=== PATIENT | female | born 1995 | race Caucasian/White ===

== ENCOUNTER 2016-06-10 21:37 | Observation (INO) ==
[2016-06-10 22:43] LABS: Bilirubin,Urine Negative (Negative); Blood,Urine Negative (Negative); Clarity,Urine Cloudy (Clear); Color,Urine Yellow (Yellow); Glucose,Urine (UA) Normal (Normal); Ketones,Urine 15 mg/dL (Negative); Leukocyte Esterase,Urine Moderate (Negative); Nitrite,Urine Negative (Negative); Protein,Urine Negative (Neg-Trace); Specific Gravity,Urine 1.016 (1.010-1.025); Urobilinogen,Urine Normal (Normal)
[2016-06-10 22:44] LABS: Bacteria,Urine Few per hpf (None-Few); Hyaline Casts,Urine None Seen per lpf (None-Few); Squamous Epithelial Cell,Urine Many per lpf (None-Few); WBC,Urine 15-30 per hpf (0-3)
[2016-06-10 22:58] LABS: Sperm,Urine Present
--- NOTE | 2016-06-11 00:03 | Discharge Summary ---
Date of Encounter: 06/11/16 Time of Encounter: 00:01 - Discharge Diagnosis (1) Non-stress test reactive Priority: Primary Status: Acute Comments: Patient Triaged by RN for labor eval; no cervical change noted per RN Reactive NST [id number] with moderate variability and 15x15 accels; category I. [place] no contractions noted. Patient discharged home with labor precautions and kick counts. - Discharge Medications Home Medications: Vit/Iron Fumarate/FA [ Tablet] 1 each PO DAILY 05/15/15 [ History] Allergies/Adverse Reactions: Allergies No Known Allergies Allergy (Verified 06/10/16 22:17) Data Procedures and tests throughout hospitalization: Laboratory Tests 06/10/16 22:35 Urine Color Yellow Urine Clarity Cloudy A Urine pH 7.0 Ur Specific Neal 1.016 Urine Protein Negative Urine Glucose (UA) Normal Urine Ketones 15 H Urine Blood Negative Urine Nitrite Negative Urine Bilirubin Negative Urine Urobilinogen Normal Ur Leukocyte Esterase Moderate H Urine Microscopic RBC 3-5 H Urine Microscopic WBC 15-30 H Ur Squamous Epith Cells Many H Urine Bacteria Few Hyaline Casts None Seen Urine Sperm Present Ur Culture Indicated? YES A Labs on day of discharge: Labs from last 24 hours 06/10/16 22:35 Urine Color Yellow Urine Clarity Cloudy A Urine pH 7.0 Ur Specific Neal 1.016 Urine Protein Negative Urine Glucose (UA) Normal Urine Ketones 15 H Urine Blood Negative Urine Nitrite Negative Urine Bilirubin Negative Urine Urobilinogen Normal Ur Leukocyte Esterase Moderate H Urine Microscopic RBC 3-5 H Urine Microscopic WBC 15-30 H Ur Squamous Epith Cells Many H Urine Bacteria Few Hyaline Casts None Seen Urine Sperm Present Ur Culture Indicated? YES A Date of admission: 06/10/16 21:37 - Patient Status Disposition: Home, Self-Care - Discharge Instructions Additional Instructions: LABOR AND DELIVERY DISCHARGE INSTRUCTIONS Signs and Symptoms to be Reported to your Doctor Immediately: * Sudden gush, continuous or intermittent lead of fluid from vagina (note the time of gush and color of fluid) * Onset of bright red vaginal bleeding with or without pain (if you had a vaginal exam during this visit you may notice some dark red spotting. This is normal.) * Lower abdominal cramping or backache that is premenstrual-like feeling. * More than 6 contractions in one hour. * Burning during urination, having to urinate more frequently or pain in your mid-back. * A change in the baby's activity. This could be an increase or decrease in activity. * Severe headache which does not go away with tylenol. * Sudden swelling in the face, hands, arms and/or legs. * Upper abdominal pain - sometimes associated with heartburn or nausea and is not relieved by Maalox, Mylanta or Tums. * Dizziness or blurred vision or visual disturbances (seeing stars/lights). * Kick Counts One hour after a meal, lay down on one side in a quiet place. Count the number of tanvi the baby moves during an hour. If less than 6 movements, notify your physician. Diet: *Force fluids - 8-10 tall glasses of fluid per day. May include popsicles and jello. *Limit caffeine - this includes chocolate, coffee, tea, any soft drink containing such as all valentin, Jeremie Yellow and Mountain Dew follow up next schedule appointment Hospital Course [employer] Time Attestation: Total time spent providing and/or coordinating discharge services: - VTE Reasons for not Prescribing Prophylaxis: Treatment not Indicated - Low risk for VTE
== END 2016-06-10 23:38 | disposition home or self-care (01) ==
LOC: 1NENULAB
PROVIDERS: ADMIT Obstetrics & Gynecology; ATTEND Obstetrics & Gynecology

== ENCOUNTER 2016-06-12 17:02 | Observation (INO) ==
--- NOTE | 2016-06-12 17:33 | OB/GYN Progress Note ---
Date of Encounter: 06/12/16 Time of Encounter: 17:31 - Assessment and Plan (1) 36 weeks gestation of Current Visit: Yes Status: Acute (2) Musculoskeletal back pain Current Visit: Yes Status: Acute TTP with light palpation across lower back. No CVAT. SVE unchanged from last exam. Will give flexeril for pain. Pt instructed on comfort measures for home. DIscharge home with precautions. (3) Non-stress test reactive Current Visit: No Status: Acute Subjective - Subjective Principal diagnosis: back pain Interval history: 20 year-old presenting at 36w1d with c/o sudden onset of sharp lower back pain and pelvic pressure at 1415 this afternoon that made her feel like she needed to push. She reports continued sharp lower back pain. She also reports some clear vaginal discharge. Good FM. No VB or cramping pain. Antepartum ROS: loss of fluid, movement normal, no vaginal bleeding, no contractions Objective - Exam FHR: category 1 FHR comments: NST 135 BPM and reactive Abdomen: Present: soft, gravid. Absent: tenderness Uterus: Absent: tenderness Cervical dilation: 1 Cervix effacement: 70 station: -2 Comments: negative CVAT, TTP with light touch across lower back SSE negative pool, negative nitrazine, negative fern, scant amount physiologic appearing mucus in vaginal vault
== END 2016-06-12 18:13 | disposition home or self-care (01) ==
LOC: 1NENULAB
PROVIDERS: ADMIT Obstetrics & Gynecology; ATTEND Obstetrics & Gynecology

== ENCOUNTER 2016-06-18 07:22 | Observation (INO) ==
--- NOTE | 2016-06-18 08:29 | OB/GYN Progress Note ---
Date of Encounter: 06/18/16 Time of Encounter: 08:29 - Assessment and Plan (1) 37 weeks gestation of Current Visit: Yes Status: Acute (2) False labor Current Visit: Yes Status: Acute SVE 2-3 cm x 2 exams this am. No cervical change noted. No contractions on toco. No leaking fluid. Reactive NST. Discharge home with precautions. (3) Non-stress test reactive Current Visit: No Status: Acute Subjective - Subjective Principal diagnosis: contractions Interval history: 20 year-old presenting at 37 weeks with c/o contractions this am and yellow discharge. She denies itching or burning. No dysuria. Good FM. Antepartum ROS: movement normal, contractions, no loss of fluid, no vaginal bleeding Objective - Vital Signs Vital Signs: Intake and Output 06/17/16 06/18/16 06/18/16 23:59 07:59 15:59 Other: Weight 73 kg Patient Weight 06/18/16 23:59 Weight 73 kg - Exam FHR: category 1 FHR comments: NST reactive Auscultation: bilateral: normal Abdomen: Present: soft, gravid. Absent: tenderness Uterus: Absent: tenderness Cervical dilation: 2-3/70/-1
== END 2016-06-18 08:37 | disposition home or self-care (01) ==
LOC: 1NENULAB

== ENCOUNTER 2016-06-27 09:28 | Inpatient (IN) ==
[~2016-06-27 09:28] MED LIST: Famotidine 20 MG/2 ML VIAL IVP PRN; Naloxone 0.4 MG/ML INJ IVP PRN; Oxytocin 20 units/ LR 1000 mL 20 UNIT/1,000 ML BAG IVC ONE; Ringers Solution, Lactated 1,000 ML ONE
[2016-06-27] MEDS ORDERED: Ringers Solution, Lactated 1,000 ML IVC SCH (09:30)
--- NOTE | 2016-06-27 09:40 | OB/GYN History & Physical ---
Date of Encounter: 06/27/16 Time of Encounter: 09:40 Assessment and Plan (1) 38 weeks gestation of Current visit: Yes Status: Acute AROM'ed with clear fluid, ok for epidural if labs return in time, anticipate History of Present Illness HPI: Ms. Lei is a 20 year old female @ 38+2 weeks who presented to L&D after reporting contractions that started at 6AM today, she does not report LOF , she reports some VB, feels good FM, GBS neg. Past Med Surg Social Fam HX - Past Medical History Medical history: no medical history, other Psychiatric history: panic disorder - Past Surgical History Surgical History: other - Social History Smoking Status: Former smoker Smokeless Tobacco Status: No Alcohol use: none Drug use: none - Family History Mother Living Status: Still Living Hx Family Cardiac Disorders: No Hx Family Respiratory Disorders: Yes (asthma) Hx Family Cancer: No Hx Family GI Disorders: No Hx Family Endocrine Disorder: No Hx Family Neuromuscular Disorders: No Hx Family Neurologic Disorders: No Hx Family HEENT Disorders: No Hx Family Autoimmune Disorders: No Obstetrical History - Pregnancies : 3 Para: 1 Term: 1 : 0 Ab's: 1 Livin Medications and Allergies Vit/Iron Fumarate/FA [ Tablet] 1 each PO DAILY 05/15/15 [ History] Allergies No Known Allergies Allergy (Verified 06/10/16 22:17) Review of System OB All systems PM: reviewed and no additional remarkable complaints except as stated Exam - Constitutional Constitutional: well developed - HEENT HEENT: PERRL - Neck Neck exam: full ROM - Lungs Respiratory exam: CTAB - Cardiovascular Cardiovascular exam: RRR - Abdomen Abdomen: Present: gravid - Extremities Extremities exam: normal inspection - Cervix Dilation: 8 Effacement: 100 Station: -1 Results Result Diagrams: 06/27/16 09:42 All other labs normal.
[2016-06-27 09:52] LABS: Basophils # 0.1 K/mcL (0.0-0.2); Basophils % 0.2 %; Eosinophils % 0.2 %; Hematocrit 35.1 % (35.3-44.9); Hemoglobin 11.4 g/dL (11.5-15.4); Immature Granulocytes % 0.7 % (0-4); Lymphocytes # 2.6 K/mcL (0.6-4.6); Lymphocytes % 11.9 %; Mean Corpuscular HGB Conc 32.5 g/dL (31.6-35.5); Mean Corpuscular Hemoglobin 24.4 pg (28.0-33.3); Mean Platelet Volume 9.4 fL (9.4-12.4); Monocytes # 1.3 K/mcL (0.0-1.3); Monocytes % 5.8 %; Platelet Count 410 K/mcL (140-400); Red Blood Count 4.68 M/mcL (3.82-4.97); Red Cell Distribution Width 14.6 % (11.5-14.5); Segmented Neutrophils % 81.2 %
--- NOTE | 2016-06-27 10:46 | OB/GYN Procedure Note ---
Delivery - Delivery Date: 06/27/16 Provider: Sabine Salgado Delivery induction: none Delivery augmentation: rupture of membranes Delivery monitor: external FHT Anesthesia: none Estimated Blood Loss: 150 - (s) Infant A Delivery Date: 06/27/16 Presentation: vertex Position: BAUTISTA Route of delivery: Gender: Female Pounds: 6 Ounces: 7 at 1 minute: 8 at 5 mins: 9 Shoulder Dystocia: not encountered Specimens collected: cord blood Placenta: spontaneous Cord: 3 umbilical vessels - Repair Episiotomy: none Laceration Description: None - Complications Delivery complications: none - Disposition Mom disposition: stable in LDR disposition: taken to nursery - Comments Comments: 20 y/o @ 38+2 weeks presented in labor and shortly afterwards delivered a viable female @ 1024hrs weighing 6lbs 7 oz. was delivered BAUTISTA, placenta delivered 3 mins later, 3 VC, APGARs 8/9. No lacerations noted upon vaginal exploration, pitocin started after delivery of placenta. EBL 150, Mother and doing very well.
[2016-06-27] MEDS ORDERED: Oxytocin 20 units/ LR 1000 mL 20 UNIT/1,000 ML BAG IVC ONE (14:36)
[2016-06-27] MEDS ORDERED: Acetaminophen 325 MG TABLET PO PRN (16:09)
[2016-06-27] MEDS ORDERED: Measles/Mumps/Rubella Vacc 0.5 ML VIAL SQ PRN (16:09)
[2016-06-27] MEDS ORDERED: Oxytocin 20 units/ LR 1000 mL 20 UNIT/1,000 ML BAG IVC SCH (16:15)
[2016-06-27] MEDS: Ibuprofen 600 MG TABLET PO PRN (23:07)
[2016-06-28 07:49] LABS: Basophils % 0.3 %; Eosinophils # 0.1 K/mcL (0.0-0.6); Eosinophils % 0.6 %; Hemoglobin 9.6 g/dL (11.5-15.4); Immature Granulocytes % 0.6 % (0-4); Lymphocytes # 2.7 K/mcL (0.6-4.6); Lymphocytes % 16.9 %; Mean Corpuscular Hemoglobin 24.2 pg (28.0-33.3); Mean Corpuscular Volume 75.8 fL (83.0-100.0); Mean Platelet Volume 9.1 fL (9.4-12.4); Monocytes # 1.2 K/mcL (0.0-1.3); Monocytes % 7.7 %; Neutrophils # 11.7 K/mcL (1.6-8.9); Platelet Count 276 K/mcL (140-400); Red Blood Count 3.96 M/mcL (3.82-4.97); Red Cell Distribution Width 14.6 % (11.5-14.5); Segmented Neutrophils % 73.9 %
[2016-06-28 08:31] VITALS: BP 110/70
[2016-06-28] MEDS: Ibuprofen 600 MG TABLET PO PRN (08:39)
[2016-06-28] MEDS ORDERED: Prenatal Vit/FA 1 EACH TABLET PO SCH (09:00)
--- NOTE | 2016-06-28 10:47 | Discharge Summary ---
Date of Encounter: 06/28/16 Time of Encounter: 10:45 - Discharge Diagnosis (1) Vaginal delivery Priority: Primary Status: Acute Comments: Patient stable , requesting discharge - Discharge Medications Prescriptions: Ibuprofen [Motrin] 600 mg PO Q6HR PRN #30 tablet PRN Reason: Cramping Ferrous Sulfate 325 mg PO DAILY #30 tablet Home Medications: Vit/Iron Fumarate/FA [ Tablet] 1 each PO DAILY 05/15/15 [ History] Ferrous Sulfate 325 mg PO DAILY #30 tablet 06/28/16 [Rx] Ibuprofen [Motrin] 600 mg PO Q6HR PRN #30 tablet 06/28/16 [Rx] Allergies/Adverse Reactions: Allergies No Known Allergies Allergy (Verified 06/10/16 22:17) Data Procedures and tests throughout hospitalization: Laboratory Tests 06/27/16 06/27/16 06/28/16 09:42 10:47 07:34 WBC 22.2 H 15.9 H RBC 4.68 3.96 Hgb 11.4 L 9.6 L D Hct 35.1 L 30.0 L MCV 75.0 L 75.8 L MCH 24.4 L 24.2 L MCHC 32.5 32.0 RDW 14.6 H 14.6 H Plt Count 410 H 276 MPV 9.4 9.1 L Immature Gran % 0.7 0.6 Seg Neutrophils % 81.2 73.9 Lymphocytes % 11.9 16.9 Monocytes % 5.8 7.7 Eosinophils % 0.2 0.6 Basophils % 0.2 0.3 Neutrophils # 18.0 H 11.7 H Lymphocytes # 2.6 2.7 Monocytes # 1.3 1.2 Eosinophils # 0.0 0.1 Basophils # 0.1 0.0 Baby's Blood Type A RH NEGATIVE Mother's Blood Type A RH NEGATIVE Rhogam Indicated NO Labs on day of discharge: Labs from last 24 hours 06/28/16 06/27/16 07:34 10:47 WBC 15.9 H RBC 3.96 Hgb 9.6 L D Hct 30.0 L MCV 75.8 L MCH 24.2 L MCHC 32.0 RDW 14.6 H Plt Count 276 MPV 9.1 L Immature Gran % 0.6 Seg Neutrophils % 73.9 Lymphocytes % 16.9 Monocytes % 7.7 Eosinophils % 0.6 Basophils % 0.3 Neutrophils # 11.7 H Lymphocytes # 2.7 Monocytes # 1.2 Eosinophils # 0.1 Basophils # 0.0 Baby's Blood Type A RH NEGATIVE Mother's Blood Type A RH NEGATIVE Rhogam Indicated NO Date of admission: 06/27/16 09:28 Discharging clinician: Anya Tejada Anticipated date of discharge: 06/28/16 - Patient Status Disposition: Home, Self-Care Condition: Good Functional capacity at discharge: independent ambulation Overall status at discharge: patient is progressing back to baseline - Discharge Instructions Follow Up With: Chino Norton MD [Partnered Physician] - (July 28, 2016 @ 1:30 pm) Additional Instructions: Perineal Care: Always wipe front to back Change your pad frequently Use your sirena bottle with warm water and spray front to back Do not douche, use tampons, have sexual intercourse or put anything in your vagina for 4-6 weeks after delivery Bleeding: Vaginal bleeding can last up to 6 weeks Your menstrual period may return as early as 6 weeks after you are discharged from the hospital [place]/Stitches Care: Vaginal Delivery Vaginal stitches will dissolve within 4-6 weeks Follow perineal care instructions Care Stitches will dissolve on their own If you have srinivasa, they will need to be removed in the doctors office within 5-7 days. You may shower with stitches or srinivasa Drip plan or soapy water over the incision to clean. Pat dry gently with a clean towel. Make sure you completely dry under the skin folds DO NOT USE powders, lotions, rubbing alcohol or hydrogen peroxide on or around your incision. This will slow your wound healing It is normal to have soreness, burning, tingling, itchiness and/or numbness as your incision heals Activity: Rest frequently Do not lift anything heavier than a gallon of milk, up to 10-15 pounds No driving for 1-2 weeks for Vaginal delivery No driving for 2-4 weeks for delivery Take stairs slowly, one at a time Gradually increase your daily activity until you are back to your normal routine Do not exercise until you have had your follow-up appointment Bathing: Take a shower daily Do not take a tub bath for the first 4 weeks Diet: Drink plenty of water and fruit juices Eat a well-balanced diet with foods high in fiber such as fruits and vegetables Depression: Your hormones have a major impact on your feelings and emotions. Hormone imbalance may cause changes in your mood, creating unfamiliar thoughts and actions. Support is available to help you understand and cope with these feelings and mood changes. If you answer yes to any of the following questions, please call your health care provider: Are you having trouble sleeping? Are you feeling isolated? Have you lost your appetite? Are you having thoughts of hurting yourself or others? WARNING SIGNS: Heavy bleeding from the vagina (blood is bright red and soaks a sanitary pad in an hour or less.) Passing a blood clot larger than your fist Discharge from the vagina that has a bad odor Temperature over 100.4 F, or if you feel cold and have chills An episiotomy site that is warm, swollen or oozing. Use a mirror if needed Urination (pee) that is painful, very red and swollen or leaking fluid An incision that is painful, very red and swollen and leaking fluid An incision that has come open Breasts that are painful or full with flu like symptoms Redness, warmth or swelling in the calf of your leg Trouble breathing, dizziness, visual disturbance or faintness *Notify your health care provider immediately or go to the nearest Emergency Room if you experience any of the above signs.* To contact the nurses station 24 hours a day, For non-urgent, routine questions, please call the office at - Diet and Activity Activity: increase activity as tolerated, resume usual activities as tolerated Diet: regular diet Hospital Course Procedures: Reason for admission: active labor Delivery: Episiotomy: none Other procedures: none complications: none Discharge diagnosis: IUP at term delivered [place] baby: female Hospital course: Patient meeting milestones. Minimal discomfort. Requesting discharge Time Attestation: Total time spent providing and/or coordinating discharge services: Time Spent: Less than 30 minutes Exam - Constitutional Vitals: Temp Pulse Resp BP Pulse Ox 98.2 F 95 16 110/70 96 06/28/16 08:30 06/28/16 08:30 06/28/16 09:33 06/28/16 08:30 06/28/16 08:30 General appearance IM: cooperative, A&O X 3, pleasant, no acute distress - Respiratory Respiratory exam: Absent: respiratory distress - Cardiovascular Cardiovascular exam IM: Absent: irregular rhythm - GI/Abdominal GI/Abdominal exam IM: normal bowel sounds, soft, no peritoneal signs - Rectal Rectal exam: deferred - Uterine Tone: Firm Uterus Position: 1 Finger Below Umbilicus - Extremities Exam Extremities exam IM: Present: normal inspection, warm. Absent: calf tenderness , pedal edema - Neurological Exam Neurological exam: alert, no focal deficits
== END 2016-06-28 11:57 | disposition home or self-care (01) | DRG 560 ==
LOC: 1NENULAB → 1NENUOBS 13:12
PROVIDERS: ADMIT Student in an Organized Health Care Education/Training Program; ATTEND Student in an Organized Health Care Education/Training Program